=== PATIENT | female | born 1990 | race Caucasian/White ===

== ENCOUNTER 2021-01-07 16:14 | Emergency (ER) | payer OTHER, SELFPAY ==
[2021-01-07 16:36] VITALS: BP 132/85; PULSE 88; RESP 20; TEMP 36.3; O2SAT 99
[2021-01-07] MEDS: LACTATED RINGERS 1,000 ML 999 ML IV CONT (16:58)
[2021-01-07 17:06] LABS: Basophils Absolute Auto 0.02 K/mm3 (0.00-0.10); Basophils Percent Auto 0.2 % (0.0-1.0); Eosinophils Absolute Auto 0.18 K/mm3 (0.02-0.50); Eosinophils Percent Auto 1.9 % (1.0-6.0); Hematocrit 37.5 % (35.0-49.0); Hemoglobin 12.8 g/dL (12.0-15.0); Immature Granulocyte Absolute 0.06 K/mm3 (0.00-0.00); Immature Granulocyte Percent A 0.6 % (0.0-0.0); Lymphocytes Absolute Auto 1.34 K/mm3 (1.10-4.50); Lymphocytes Percent Auto 13.8 % (18.0-42.0); Mean Corpuscular HGB Conc 34.1 g/dL (32.0-36.0); Mean Corpuscular Hemoglobin 29.9 pg (27.0-31.0); Mean Corpuscular Volume 87.6 fL (78.0-102.0); Mean Platelet Volume 9.1 fl (9.2-11.8); Monocytes Absolute Auto 1.08 K/mm3 (0.10-0.90); Monocytes Percent Auto 11.1 % (2.0-11.0); Neutrophils Percent Auto 72.4 % (50.0-70.0); Platelet Count Result 317 K/mm3 (150-420); Red Blood Count 4.28 M/mm3 (4.20-5.40); Red Cell Distribution Width 12.1 % (11.6-14.4); White Blood Count 9.7 K/mm3 (4.8-10.8)
[2021-01-07 17:08] LABS: Add Urine Microscopic? NO; Appearance Urine Clear (Clear); Bilirubin Urine Negative (Negative); Blood Urine Negative (Negative); Color Urine Yellow (Yellow); Glucose Urine UA Negative (Negative); Ketones Urine Negative (Negative); Leukocyte Esterase Ur Negative (Negative); Nitrate Urine Negative (Negative); Pregnancy On Board Control Positive; Protein Urine Negative (Negative); Specific Grav Ur 1.025 (1.010-1.020); Urine Pregnancy Test Positive; Urobilinogen Urine 0.2 mg/dL (0.2-1.0)
[2021-01-07 17:20] LABS: Alanine Aminotransferase 20 U/L (14-59); Albumin Level 3.9 g/dL (3.4-5.0); Alkaline Phosphatase 65 U/L (46-116); Anion Gap 14 mmol/L (8-16); Aspartate Amino Transferase < 10 U/L (15-37); Bilirubin,Total 0.2 mg/dL (0.00-1.00); Blood Urea Nitrogen 13 mg/dL (7-18); Calcium 9.3 mg/dL (8.5-10.1); Carbon Dioxide 23 mmol/L (21-32); Chloride 102 mmol/L (98-108); Estimated CRCL calculation 91 ml/min; Estimated Glomerular Filt Rate > 60; Glucose 91 mg/dL (70-99); Lipase 76 U/L (73-393); Osmolality Calculated 288 mOsm/kg (285-295); Potassium 3.7 mmol/L (3.5-5.1); Sodium 139 mmol/L (136-145); Total Protein 7.2 g/dL (6.4-8.2)
[2021-01-07 17:25] LABS: Lactic Acid Reflex 1.1 mmol/L (0.4-2.0)
--- NOTE | 2021-01-07 17:37 | ED.ABDPAIN ---
HPI - Abdominal Pain General Chief Complaint: Abdominal Pain Stated Complaint: lower abd pain Source: patient Mode of arrival: ambulatory History of Present Illness HPI narrative: This is a 30-year-old female that presents with some mild lower abdominal discomfort periumbilical intermittent with some episodes of constipation but currently had a normal and regular bowel movement earlier today with no nausea or vomiting no chest pain no shortness of breath. Patient has some discomfort started few days ago and has gotten worse today but tolerable. There is no dysuria no hematuria no flank pain no fever chills. MD elicited complaint: abdominal pain Pertinent past history: none Onset (ago): day(s) Pain Consistency: intermittent Location: periumbilical Severity: mild Quality: aching Radiation: none Migration to: no migration Related Data Home Medications Medication Instructions Recorded Confirmed norethindrone-e.estradiol-iron [Lo 1 tablet PO DAILY 01/07/21 01/07/21 Loestrin Fe] ocrelizumab [Ocrevus] 600 mg IV [id number] 01/07/21 01/07/21 Allergies Allergy/AdvReac Type Severity Reaction Status Date / Time Penicillins Allergy Rash Verified 01/07/21 17:01 sulfamethoxazole Allergy Rash Verified 01/07/21 17:01 trimethoprim Allergy Rash Verified 01/07/21 17:01 Review of Systems Review of Systems: All systems reviewed & are unremarkable except as noted in HPI and below PMFSH Past Medical History Medical History Multiple sclerosis Social History Social History Gender identity (if verbalized by the patient): Female Exam Const: General: no acute distress Orientation/consciousness: patient oriented x3 HENMT: Head: normal to inspection Eyes: Conjunctivae: conjunctivae normal Pupils: Equal, round and reactive pupils present EOM: EOMs intact bilaterally Resp: Effort & Inspection: normal respiratory effort Cardio: Rate: regular rate Rhythm: regular rhythm GI: GI Palp: Yes Soft to palpation Percussion: Yes normal to percussion : General: Yes no CVA tenderness Back/Spine/Pelvis: Back: no CVA tenderness Skin: General skin exam: normal color Rashes: no rashes Extrem: General: normal to inspection and no pedal edema Psych: Appearance: grossly normal Mental Status: mental status grossly normal Affect: normal affect Attitude: cooperative Thought content: Yes Normal thought content present Course Course Emergency Course: reviewed findings with patient and urine hCG was positive and talked to patient about and advised 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 Vital Signs Vital signs: Vital Signs Temperature 36.3 C L 01/07/21 16:36 Pulse Rate 88 01/07/21 16:36 Respiratory Rate 20 01/07/21 16:36 Blood Pressure 132/85 01/07/21 16:36 Pulse Oximetry 99 01/07/21 16:36 Temperature 36.3 C L 01/07/21 16:36 Pulse Rate 88 01/07/21 16:36 Respiratory Rate 20 01/07/21 16:36 Blood Pressure 132/85 01/07/21 16:36 Pulse Oximetry 99 01/07/21 16:36 MDM - Abdominal Pain Lab Data Result diagrams: 01/07/21 17:01 01/07/21 17:01 Labs: Lab Results 01/07/21 01/07/21 01/07/21 Range/Units 17:01 17:01 17:01 WBC 9.7 (4.8-10.8) K/mm3 RBC 4.28 (4.20-5.40) M/mm3 Hgb 12.8 (12.0-15.0) g/dL Hct 37.5 (35.0-49.0) % MCV 87.6 (78.0-102.0) fL MCH 29.9 (27.0-31.0) pg MCHC 34.1 (32.0-36.0) g/dL RDW 12.1 (11.6-14.4) % Plt Count 317 (150-420) K/mm3 MPV 9.1 L (9.2-11.8) fl Immature Gran % (Auto) 0.6 H (0.0-0.0) % Neut % (Auto) 72.4 H (50.0-70.0) % Lymph % (Auto) 13.8 L (18.0-42.0) % [place] % (Auto) 11.1 H (2.0-11.0) % Eos % (Auto) 1.9 (1.0-6.0) % Baso % (Auto) 0.2 (0.0-1.0) % Lymph # (Auto) 1.34 (1.10-4.50) K/mm3 [place] # (Auto) 1.08 H (0.10-0.90) K/mm3 Eos # (Aut
[2021-01-07 17:44] VITALS: BP 132/84; PULSE 83; RESP 20; TEMP 36.9; O2SAT 100
== END 2021-01-07 17:54 | disposition home or self-care (01) ==
PROVIDERS: Emergency Provider Emergency Medicine
DX: Z34.90 Encounter for supervision of normal pregnancy, unspecified, unspecified trimester (principal)
CPT/HCPCS: 36415; 80053; 81003; 81025; 83605; 83690; 85025; 96360; 99282; 99283; J7120